=== PATIENT | female | born 1980 | race Caucasian/White ===

== ENCOUNTER 2017-11-03 08:11 | Emergency (ER) | payer OTHER ==
[~2017-11-03] VITALS: Ht 162.6 cm; Wt 77.7 kg
[2017-11-03 08:13] VITALS: BP 123/84
== END 2017-11-03 09:07 | disposition home or self-care (01) ==
LOC: ER 08:11
DX: S60.561A Insect bite (nonvenomous) of right hand, initial encounter (principal); S30.861A Insect bite (nonvenomous) of abdominal wall, initial encounter; S40.861A Insect bite (nonvenomous) of right upper arm, initial encounter; F12.10 Cannabis abuse, uncomplicated; G40.909 Epilepsy, unspecified, not intractable, without status epilepticus; F15.10 Other stimulant abuse, uncomplicated; W57.XXXA Bitten or stung by nonvenomous insect and other nonvenomous arthropods, initial encounter; Y93.89 Activity, other specified; Y92.89 Other specified places as the place of occurrence of the external cause
CPT/HCPCS: 99283